=== PATIENT | female | born 1990 | race Two or more races ===

== ENCOUNTER 2021-05-25 11:09 | Emergency (ER) | payer MEDICARE ==
[~2021-05-25] VITALS: Ht 175.3 cm; Wt 87.7 kg
[2021-05-25 11:56] VITALS: BP 116/77
== END 2021-05-25 13:12 | disposition home or self-care (01) ==
LOC: ED 12:54
DX: S83.92XA Sprain of unspecified site of left knee, initial encounter (principal); B37.2 Candidiasis of skin and nail; R00.0 Tachycardia, unspecified; Z88.0 Allergy status to penicillin; Z59.0 Homelessness; X58.XXXA Exposure to other specified factors, initial encounter; Y93.89 Activity, other specified; Y92.89 Other specified places as the place of occurrence of the external cause; Y99.8 Other external cause status
CPT/HCPCS: 99283